=== PATIENT | female | born 1935 | race Caucasian/White ===

== ENCOUNTER 2016-07-03 09:32 | Emergency (ER) | payer MEDICARE, BC ==
--- NOTE | 2016-07-03 10:32 | UC ---
Upper Extremity HPI - HPI Summary HPI Summary: slipped and fell on her porch June 21, did not hit head landed on left wrist. The entire forearm got eechymotic has continued pain in the 1st area - History of Current Complaint Stated Complaint: LEFT HAND PAIN-FALL Time Seen by Provider: 07/03/16 10:07 Hx Obtained From: Patient ?: No Onset/Duration: Sudden Onset, Lasting Days - 12, Still Present Severity Initially: Moderate Severity Currently: Mild Pain Intensity: 2 Pain Scale Used: 0-10 Numeric Location Of Pain: Is Discrete @ Character: Aching Aggravating Factor(s): Movement Alleviating Factor(s): Ice, OTC Meds Associated Signs And Symptoms: Positive: Swelling, Bruising Related History: Dominant Hand Right - Allergies/Home Medications Allergies/Adverse Reactions: Allergies Allergy/AdvReac Type Severity Reaction Status Date / Time No Known Allergies Allergy Verified 07/03/16 10:33 Home Medications: Home Medications Ibuprofen [Advil] 1 tab PO DAILY PRN 07/03/16 [History Confirmed 07/03/16] PMH/Surg Hx/FS Hx/Imm Hx Previously Healthy: Yes - Family History Known Family History: Positive: None Family History: no reported cardiovascular issues in family lineage - Social History Occupation: Retired Lives: Alone Alcohol Use: None Substance Use Type: None Smoking Status (MU): Never Smoked Tobacco Have You Smoked in the Last Year: No Review of Systems Constitutional: Negative Skin: Bruising - left hand, wrist, forearm Eyes: Negative ENT: Negative Respiratory: Negative Cardiovascular: Negative Gastrointestinal: Negative Genitourinary: Negative Motor: Negative Neurovascular: Negative Musculoskeletal: Negative Neurological: Negative Psychological: Negative All Other Systems Reviewed And Are Negative: Yes Physical Exam Triage Information Reviewed: Yes Appearance: Well-Appearing, No Pain Distress, Well-Nourished Vital Signs Reviewed: Yes Eye Exam: Normal Eyes: Positive: Conjunctiva Clear ENT Exam: Normal ENT: Positive: Normal ENT inspection, Hearing grossly normal, Pharynx normal, TMs normal. Negative: Nasal congestion, Nasal drainage, Tonsillar swelling, Tonsillar exudate, Trismus, Muffled/hoarse voice Dental Exam: Normal Neck exam: Normal Neck: Positive: Supple, Nontender Respiratory Exam: Normal Respiratory: Positive: Chest non-tender, Lungs clear, Normal breath sounds, No respiratory distress, No accessory muscle use Cardiovascular Exam: Normal Cardiovascular: Positive: RRR, No Murmur, Pulses Normal, Brisk Capillary Refill Musculoskeletal: Positive: Strength Limited @ - lest wrist, ROM Limited @ - left wrist, Edema @ - left wrist/hand Neurological: Positive: Alert, Muscle Tone Normal Psychological Exam: Normal Psychological: Positive: Normal Response To Family Skin Exam: Normal Diagnostics - Radiology No standard instances Xray Interpretation: Positive (See Comments) - distal radius fx with angulation Radiology Interpretation Completed By: ED Physician, Radiologist Re-Evaluation - Re-Evaluation First Eval Change: Improved - splint and sling applied n/m/c intact before and after sling Upper Extremity Course/Dx - Course Course Of Treatment: splint, sling, rice, follow with ortho, hypertension information DASH Diet plan follow with PCP - Differential Dx/Diagnosis Differential Diagnosis/HQI/PQRI: Bursitis, Fracture (Closed), Hematoma, Strain, Sprain Provider Diagnoses: Distal radius fracture, hypertension with dx Discharge - Discharge Plan Condition: Stable Disposition: HOME Patient Education Materials: DASH Eating Plan (ED), Hypertension (ED), Wrist Fracture in Adults (ED) Referrals: Fco Low MD [Medical Doctor] - 3 Days [facility] [place] [facility] REFERRAL [Outside] - 1 Week
--- NOTE | 2016-07-03 10:33 | RAD ---
Indication: Fall on outstretched hand, left wrist pain 3 views of left wrist demonstrates comminuted fracture of the distal radius with some foreshortening and slight dorsal angulation. Degenerative changes of the trapezium first metacarpal joint is noted. IMPRESSION: Fracture distal radius with slight dorsal angulation.
[2016-07-03 10:40] VITALS: BP 180/102
== END 2016-07-03 11:06 | disposition home or self-care (01) ==
LOC: UCCORT 09:32
DX: S52.502A Unspecified fracture of the lower end of left radius, initial encounter for closed fracture (principal); W01.0XXA Fall on same level from slipping, tripping and stumbling without subsequent striking against object, initial encounter; Y93.9 Activity, unspecified; Y92.89 Other specified places as the place of occurrence of the external cause
CPT/HCPCS: 99203; G0463